=== PATIENT | male | born 1945 | race Caucasian/White ===

== ENCOUNTER 2025-03-08 09:15 | Outpatient (CLI) | payer MEDICARE, OTHER, SELFPAY ==
--- OUTSIDE RECORDS SUMMARY | 2025-03-08 10:02 | XMS_ITS | Patient Health Record ---
Author Organization [facility] Address [address] [place], [place] [address]RACHELLE SHEPPARD [place] [id number] Care Team Providers Care Client Relations Associate Name Role Phone Curtiss, Doctor Primary Care Provider [phone] Reason For Referral No Information Medications Medication SIG (Take, Route, Fr equency, Duration) Notes Start Date End Date Status Aspir-81 81 MG 1 tablet Orally Once a day Active metFORMIN HCl 500 MG 1 tablet with meals Orally Twice a day Active Lisinopril 40 MG 1 tablet Orally Once a day Active Simvastatin 20 MG 1 tablet in the even ing Orally Once a day Active Immunizations Vaccine Route Administration Date Status Comme nts INFLUENZA VACCINE Unknown 06/09/2009 Administered ([facility] [place]) Plan Of Treatment No Information Insurance Providers Payer Name Payer Address Payer Phone Subscriber Number Group Number Insured Name Patient Relationship to Insured Coverage Start Date Coverage End Date [employer] ([id number]) [address] [address] [place] [address] [phone] [id number] Andrew Hinds Self - patient is the insured [employer] ([id number]) Foley GBA ATTN J Medicare Part A [address] [place] [address] [id number] Andrew Hinds Self - patient is the insured
--- OUTSIDE RECORDS SUMMARY | 2025-03-08 10:02 | XMS_ITS | Clinical Summary ---
Author Organization [facility] Address [address] [place] [id number] Care Team Providers Care Catch Basin Cleaner Name Role Phone Kenan Garcia MD Primary Care Provider Allergies No known active allergies Medications omega-3 fatty acids-vitamin E (FISH OIL) 1,000 mg capIndications: for joints Take 1 capsule by mouth once daily. Indications: for joints 0 4 Active blood-glucose meter (BLOOD GLUCOSE MONITORING)Consuelo cations:Diabete s mellitus, type 2 (HC) Dispense meter, test strips, lancets covered by pt ins. 250.02 NIDDM type II, uncontrolled - Test 2 times/day. Reason: High A1C 1 Device 0 5 Active TRUETRACK TEST stripIndication s:Type 2 diabetes mellitus without complication, without long-term current use of insulin (HC) CHECK GLUCOSE TWICE A DAY 100 Each 2 7 Active aspirin (ECOTRIN) 81 mg enteric coated tablet Take 1 tablet by mouth once daily with a meal. 0 7 Active atorvastatin 40 mg tabletIndicatio ns:HTN (hypertension) Take 1 Tablet (40 mg) by mouth once daily. 90 Tablet 3 12/15/2024 3:36 PM CDT 4 Active finasteride 5 mg tabletIndicatio ns:BPH without urinary obstruction Take 1 Tablet (5 mg) by mouth once daily in the morning. 90 Tablet 3 02/09/2025 5:03 PM CDT 4 Active lisinopril-hydr ochlorothiazide (10-12.5 mg) tablet (PRINZIDE; ZESTORETIC)Consuelo cations:HTN (hypertension) Take 1 Tablet by mouth once daily. 90 Tablet 3 02/09/2025 5:03 PM CDT 4 Active metFORMIN 500 mg Extended-Releas e tabletIndicatio ns:Type 2 diabetes mellitus without complication, without long-term current use of insulin (HC) Take 1 Tablet (500 mg) by mouth once daily with evening meal. 90 Tablet 3 02/09/2025 5:03 PM CDT 4 Active propranolol ER 60 mg Cs24 Sustained-Relea se capsuleIndicati ons:HTN (hypertension) Take 1 Capsule (60 mg) by mouth once daily. 90 Capsule 3 02/09/2025 5:03 PM CDT 4 Active albuterol HFA (PRO-AIR; VENTOLIN; PROVENTIL) 90 mcg/actuation inhalerIndicati ons:Pneumonia of right lung due to infectious organism, unspecified part of lung,Wheezing Inhale 2 Puffs by mouth every 4 hours if needed for Shortness Of Breath. 8.5 g 10/29/2024 11:52 AM REHABILITATION ATTENDANT 5 Active codeine-guaiFEN esin 10-100 mg/5 mL liquidIndicatio ns:Pneumonia of right lung due to infectious organism, unspecified part of lung,Wheezing Take 10 mL by mouth every 6 hours if needed for Cough. 118 mL 10/29/2024 11:52 AM REHABILITATION ATTENDANT 5 Active Additional Information Patient not taking.Reported on 02/25/2025 traMADoL (ULTRAM) 50 mg tabletIndicatio ns:Internal derangement of left knee,Acute pain of left knee Take 1 Tablet (50 mg) by mouth every 6 hours if needed for Pain. 20 Tablet 11/25/2024 3:40 PM CDT 5 Active Additional Information Patient not taking.Reported on 02/25/2025 durable medical equipment (DME)Indication s:Internal derangement of left knee Reddie Brace, Small 1 Each 5 Active Active Problems Problem Noted Date Diagnosed Date Essential tremor 06/29/2020 CTS (carpal tunnel syndrome) 10/21/2013 Kidney stone 10/24/2011 Diabetes mellitus type II 06/21/2011 Arteriosclerotic heart disease (ASHD) 01/22/2010 Overview (01/22/2010): - 12/15/09 Cor angio: 90% mid LAD, otherwise mild CAD; s/p MADALYN x 1 Chest pain 01/22/2010 Family hx of prostate cancer 09/27/2009 Other and unspecified hyperlipidemia Overview (12/15/2009): -Untreated -Hx myalgias with Lipitor Depression HTN (hypertension) Resolved Problems Problem Noted Date Diagnosed Date Resolved Date Elevated blood sugar 12/12/2010 015 Atypical chest pain 10/30/19 15 Encounters Date Type Department Care Team Description 02/25/2025 9:10 AM CDT Office Visit [facility] [address] [place] [address] Vimal Kamara MD Pain (In right side and radiates front to the back/Pain started 3 weeks ago and is gradually getting worse/Went to the ER and kidney stones where ruled out) 02/25/2025 Travel 02/24/2025 Nurse Triage [facility] [address] [place] [address] Kenan Garcia MD Back Pain 02/16/2025 9:40 AM CDT Office Visit [facility] [address] [place] [address] Sacha Aguilar MD Musculoskeletal Problem (Follow up back pain last seen 03/08/24) 02/16/2025 Travel 02/13/2025 4:54 PM CDT - 02/13/2025 7:28 PM CDT Emergency [facility] [address] [place] [address] John Poe MD Flank pain (Primary Dx) Discharge Disposition: Home Self Care 02/13/2025 Travel 12/15/2024 9:49 AM CDT - 12/15/2024 11:59 PM CDT Hospital Encounter [facility] [address] [place] [address] Lars Briggs PA Kaufenberg, Rachel, PT Acute medial meniscus tear of left knee, initial encounter; Chondromalacia, left knee; Sprain of medial collateral ligament of left knee, initial encounter; Tendinitis of left quadriceps tendon; Popliteal cyst, left 12/15/2024 Travel 12/07/2024 1:00 PM CDT Office Visit [facility] [place] [address] [facility] [place] [address] Lars Briggs PA Knee Pain/problem (f/u left knee MRI) 12/07/2024 Travel from Last 3 Months Immunizations Immunization Administration Dates Next Due Amb Influenza, Inact (High-d ose) (Flu Clinic Only) 06/30/2014 COVID-19 VACCINE SPIKEVAX (M ODERNA 50MCG/0.5ML) 12YO+ PFS 06/08/2024 COVID-19 vaccine (Moderna 50 mcg/0.5mL) 12YO+ BIVALENT PF, MDV 06/07/2023 COVID-19 vaccine (EventCombo-Bio NTech 30mcg/0.3mL) 12YO+ BIVALENT PF, MDV 06/25/2022 COVID-19 vaccine (Pfizer-Bio NTech 30mcg/0.3mL) 12YO+ VIK-SUCROSE PF, MDV 03/27/2022 COVID-19 vaccine (Pfizer-Bio NTech 30mcg/0.3mL) PF, MDV 06/10/2021,12/07/2020,11/09/2020 Hepatitis A (Adult) 10/29/2012,11/06/2011 Influenza, High-dose Inactivated 024,06/22/2019,06/04/2018,06/24,06/24/2016,06/21/2015,06/30/2014 Influenza, High-dose Quadriv alent Inactivated 06/07/2023,06/25/2022,06/23/2020 Influenza, IIV3 (Age >=3 years) 06/03/20 12,08/02/2011,06/28/2010,06/09,06/24/2008,07/14/2006,08/13/2005 ,08/29/2004 Influenza, Inactivated AIIV4 (Age 65+ Years) Preserv Free 06/10/2021 Pneumococcal Poly,23-Valent (Pneumovax) 11/14/2021,12/16/2009 Pneumococcal conj 13-Valent (Prevnar 13) 08/04/2015 RSV, Bivalent Vaccine Recons tituted (Abrysvo 120MCG/0.5mL) 06/07/2023 Tdap 07/10/2021,11/06/2011 Typhoid (injectable) 11/06/2011 Zoster (Shingrix-RZV, recombinant) 06/08/2024, Zoster (Zostavax-ZVL, live) 06/24/2016 Family History Medical History Relation Name Comments Cancer-prostate Brother prostatectom y Diabetes Father Relation Name Status Comments Brother Father Social History Tobacco Use Types Packs/Day Years Used Date Smoking Tobacco: Never Passive Smoke Exposure: Past Smokeless Tobacco: Never Tobacco Cessation:Counseling Given: Yes Alcohol Use Standard Drinks/Week Comments Yes 0 (1 standard drink = 0.6 oz pur e alcohol) 2 daily PHQ-2 Answer Date Recorded PHQ-2 TOTAL SCORE 0 08/31/2024 Social Connections Answer Date Recorded Do you often feel lonely or isolated from those around you? 0 02/25/2025 Financial Resource Strain Answer Date R ecorded Difficulty of Paying Living Expenses 3 02/25/2025 Difficulty of Paying Living Expenses Not on file 02/25/2025 Food Insecurity Answer Date Recorded Do you worry your food will run out before you are able to buy more? 1 02/25/2025 Transportation Needs Answer Date Record ed Does lack of transportation keep you from medica l appointments? 1 02/25/2025 Does lack of transportation keep you from work, meetings or getting things that you need? 1 02/25/2025 Housing Stability Answer Date Recorded What is your housing situation today? 1 02/25/2025 Interpersonal Safety Answer Date Record ed Are you being hit, kicked, p ushed or yelled at (see row info)? No 02/13/2025 Interpersonal Safety Abuse 12 - 18 Not on file 02/13/2025 Interpersonal Safety Ambulatory Vulnerability No t on file 02/13/2025 Utilities Answer Date Recorded Do you have trouble paying f or utilities (for example, heat, electricity, water, phone)? 1 02/25/2025 Sex and Gender Information Value Date Recorded Sex Assigned at Not on file Legal Sex Male 6:03 AM REHABILITATION ATTENDANT Gender Identity Not on file Sexual Orientation Not on file Occupation Industry Job Start Date Job End Date retired Not on file Not on file Not on file Obstetrics History Last Filed Vital Signs Vital Sign Reading Time Taken Comments Blood Pressure 144/74 02/25/2025 9:11 AM CDT Pulse 62 02/25/2025 9:11 AM CDT Temperature 36.5 C (97.7 F) 02/16/2025 9:46 AM CDT Respiratory Rate 18 02/13/2025 5:00 PM CDT Oxygen Saturation 99% 02/25/2025 9:09 AM CDT Inhaled Oxygen Concentration - - Weight 92.6 kg (204 lb 1.6 oz) 02/25/2025 9:09 A M CDT Height 188 cm (6' 2) 02/13/2025 5:04 PM CDT Body Mass Index 26.2 02/13/2025 5:04 PM CDT Plan of Treatment Upcoming Encounters Date Type Department Care Team (Late st Contact Info) Description 04/21/2025 9:40 AM CDT Office Visit [facility] [address] [place] [address] Sacha Aguilar MD [address] [place] [address] Health Maintenance Due Date Last Done Comments COVID-19 vaccine series ( season) 2024 06/08/2024, 06/07/2023, 06/07/2023, Additional history exists Depression screening for age 12+ 08/31/2025 08/31/2024, 03/03/2024, 03/03/2024, Additional history exists Medicare Wellness for age 65+ 09/01/2025 08/31/2024, 12/02/2022, 11/27/2021, Additional history exists BMI (ht and wt on same day) for age 18+ 11/03/2025 11/03/2024, 08/31/2024, 03/03/2024, Additional history exists Tetanus booster 07/10/2031 07/10/2021, 11/06/2011 Tdap Completed 07/10/2021, 11/06/2011 Hepatitis C screening for age 18-79 Completed 07/11/2021 Pneumococcal series for age 50+ Completed 11/14/2021, 08/04/2015, 12/16/2009 RSV vaccine for adults or Completed 06/07/2023 Influenza Vaccine Completed 06/08/2024, , 06/22/2019, Additional history exists Zoster (shingles) series for age 50+ Completed 06/08/2024, 11/14/2021, 06/24/2016 Hepatitis B series for 19+ Aged Out N o longer eligible based on patient's age to complete this topic Medical Devices Implanted Type Area Artificial Fly Tier Device Identifier Shelf Expiration Date Model / Serial / Lot Arthro Speedbridge 4.75 Kit - [id number] Implanted:Qty: 1 on 08/21/2020 by Ambrocio Jensen MD at [facility] Left: Shoulder 04/14/2024 [id number] / / [id number] Procedures Procedure Name Priority Date/Time Associated Diagnosis Comments AMB EPIDURAL STEROID INJECTION Routine 03/08/2025 7:59 AM CDT Lumbar facet arthropathy Lumbar spondylosis Lumbar disc herniation Lumbar radiculopathy CT ABDOMEN PELVIS STONE PROTOCOL WO STAT 02/13/2025 5:24 PM CDT UA W/ SEDIMENT EXAM REFLEXED PER CRITERIA STAT 02/13/2025 5:09 PM CDT ANTI HCV Routine 07/11/2021 3:57 PM CDT Need for hepatitis C screening test from Last 3 Months or Most Recently Relevant to Health Maintenance Results * CT ABD/PELVIS STONE PROTOCOL WO CONT (02/13/2025 5:24 PM CDT) Anatomical Region Laterality Modality Abdomen, Pelvis, AORTA, LIVER, SPLEEN Computed Tomography 02/13/2025 7:20 PM CDT Impressions 02/13/2025 7:20 PM CDT 1. No acute abnormality to explain right flank pain. Negative for hydronephrosis or nephrolithiasis. 2. Colonic diverticulosis without evidence of acute diverticulitis. Please note that all CT scans at this facility use dose modulation, iterative reconstruction, and/or weight-based dosing when appropriate to reduce radiation dose to as low as reasonably achievable. Dictated by Elyssa Michel MD @ 02/13/2025 7:20:28 PM (Electronically Signed) Narrative 02/13/2025 7:20 PM CDT For Patients: As a result of the Cures Act, medical imaging exams and procedure reports are released immediately into your electronic medical record. You may view this report before your referring provider. If you have questions, please contact your health care provider. INDICATION: Right flank pain TECHNIQUE: CT abdomen and pelvis without contrast. COMPARISON: None. FINDINGS: The visualized portions of the lung bases are clear. Evaluation of the abdominal viscera is limited due to lack of IV contrast, however the liver, spleen, pancreas and adrenal glands are unremarkable. The gallbladder is surgically absent. The kidneys are negative for hydronephrosis or nephrolithiasis. The bladder is partially distended and unremarkable. There are no dilated loops of small bowel to suggest obstruction.The appendix is not visualized.Scattered colonic diverticula without adjacent inflammatory change. Negative for intraperitoneal free air or fluid. Small fat containing bilateral inguinal hernias. Moderate multilevel degenerative changes of the spine. Procedure Note Elyssa Michel MD - 02/13/2025 For Patients: As a result of the Cures Act, medical imagingexams and procedure reports are released immediately into your electronicmedical record. You may view this report before your referring provider.If you have questions, please contact your health care provider. INDICATION: Right flank pain TECHNIQUE: CT abdomen and pelvis without contrast. COMPARISON: None. FINDINGS: The visualized portions of the lung bases are clear. Evaluation of the abdominal viscera is limited due to lack of IV contrast,however the liver, spleen, pancreas and adrenal glands are unremarkable.The gallbladder is surgically absent. The kidneys are negative for hydronephrosis or nephrolithiasis. Thebladder is partially distended and unremarkable. There are no dilated loops of small bowel to suggest obstruction.Theappendix is not visualized.Scattered colonic diverticula without adjacentinflammatory change. Negative for intraperitoneal free air or fluid. Smallfat containing bilateral inguinal hernias. Moderate multilevel degenerative changes of the spine. IMPRESSION: 1. No acute abnormality to explain right flank pain. Negative forhydronephrosis or nephrolithiasis. 2. Colonic diverticulosis without evidence of acute diverticulitis. Please note that all CT scans at this facility use dose modulation,iterative reconstruction, and/or weight-based dosing when appropriate toreduce radiation dose to as low as reasonably achievable. Dictated by Elyssa Michel MD @ 02/13/2025 7:20:28 PM (Electronically Signed) us John Poe MD CT Fin al Result * UA W/ SEDIMENT EXAM REFLEXED PER CRITERIA (02/13/2025 5:09 PM CDT) COLOR Yellow Yellow Color 02/13/2025 5:20 PM [facility] CLARITY Clear Clear Clarity 02/13/2025 5:20 PM [facility] SPECIFIC GRAVITY,URINE 1.020 1.010, 1.015, 1.020, 1.025 02/13/2025 5:20 PM [facility] PH,URINE 5.5 6.0, 7.0, 8.0, 5.5, 6.5, 7.5, 8.5 02/13/2025 5:20 PM [facility] UROBILINOGEN, QUALITATIVE Normal Normal EU/dl 02/13/2025 5:20 PM [facility] PROTEIN, URINE Negative Negative mg/dL 02/13/2025 5:20 PM [facility] GLUCOSE, URINE Negative Negative mg/dL 02/13/2025 5:20 PM [facility] KETONES,URINE Negative Negative mg/dL 02/13/2025 5:20 PM [facility] BILIRUBIN,URI NE Negative Negative 02/13/2025 5:20 PM [facility] OCCULT BLOOD,URINE Negative Negative 02/13/2025 5:20 PM [facility] NITRITE Negative Negative 02/13/2025 5:20 PM [facility] LEUKOCYTE ESTERASE Negative Negative 02/13/2025 5:20 PM CDT [facility] Urine URINE SPECIMEN / Unknown Non-Blood / Unknown 02/13/2025 5:09 PM CDT 02/13/2025 5:12 PM CDT [facility] Ed Triage URINE Final Result [facility] [address] [facility] [place] [address] * ANTI HCV (07/11/2021 3:57 PM CDT) HEPATITIS C ANTIBODY Non-React rosa Non-React rosa 07/11/2021 9:42 PM CDT [facility] Comment:Antibodies to HCV no t detected; does not exclude the possibility of exposure to HCV. Blood BLOOD SPECIMEN / Unknown Venipuncture / Unknown 07/11/2021 3:57 PM CDT 07/11/2021 2:00 PM CDT Kenan Garcia MD SEND OUTS Final R esult [facility] [address] [place] [address], from Last 3 Months or Most Recently Relevant to Health Maintenance Insurance MEDICARE [place] [address] [place] [address] MEDICARE PART B HB ONLY MEDICA [employer] [place] ONLY MEDICA PRIME SOLUTION HB MEDICARE PART A HB ONLY Advance Directives * Full Code (Latest Code Status on File) Date Activated Date Inactivated Comments 08/21/2020 9:25 AM 08/21/2020 4:14 PM Question Answer Comments Code Status Discussion: Not Discussed * Full Code Date Activated Date Inactivated Comments 10/30/2017 8:44 AM 10/30/2017 12:08 PM Question Answer Comments Code Status Discussion: Discussed * Full Code Date Activated Date Inactivated Comments 10/30/2017 7:16 AM 10/30/2017 8:44 AM * Full Code Date Activated Date Inactivated Comments 10/07/2017 8:40 AM 10/08/2017 2:35 AM * Full Code Date Activated Date Inactivated Comments 10/21/2013 2:20 PM 10/21/2013 5:24 PM Care Teams Catch Basin Cleaner Relationship Specialty Start Date End Date Kenan Garcia MD [address] [place] [address] PCP - General Family Practice 05/01/21
--- OUTSIDE RECORDS SUMMARY | 2025-03-09 00:45 | XMS_ITS | Clinical Summary ---
Author Organization [facility] Address [address] [place] [id number] Care Team Providers Care Field Consultant Name Role Phone Kenan Garcia MD Primary [...] Of Breath. 8.5 g 10/29/2024 11:52 AM ACCOUNT FINANCIAL MANAGER 5 Active codeine-guaiFEN esin 10-100 mg/5 mL liquidIndicatio ns:Pneumonia of right lung due to infectious organism, unspecified part of lung,Wheezing Take 10 mL by mouth every 6 hours if needed for Cough. 118 mL 10/29/2024 11:52 AM ACCOUNT FINANCIAL MANAGER 5 Active Additional Information Patient not taking.Reported [...] Encounters Date Type Department Care Team Description 03/08/2025 10:00 AM CDT Office Visit [facility] [address] [place] [address] Sacha Aguilar MD Procedure (L3-4 ILESI) 02/25/2025 9:10 AM CDT Office Visit [facility] [address] [place] [address] Vimal Kamara MD Pain (In right side and radiates front to the back/Pain started 3 weeks ago and is gradually getting worse/Went to the ER and kidney stones where ruled out) 02/25/2025 Travel 02/24/2025 Nurse Triage [facility] [address] [place] [address] Kenan Garcia MD Back Pain 02/16/2025 9:40 AM CDT Office Visit [facility] [address] [place] [address] Sacha Aguilar MD Musculoskeletal Problem (Follow up back pain last seen 03/08/24) 02/16/2025 Travel 02/13/2025 4:54 PM CDT - 02/13/2025 7:28 PM CDT Emergency [facility] [address] [place] [address] John Poe MD Flank pain (Primary Dx) Discharge Disposition: Home Self Care 02/13/2025 Travel 12/15/2024 9:49 AM CDT - 12/15/2024 11:59 PM CDT Hospital Encounter [facility] - [address] [place] [address] Lars Briggs PA Kaufenberg, Rachel, PT Acute medial meniscus tear of left knee, initial encounter; Chondromalacia, left knee; Sprain of medial collateral ligament of left knee, initial encounter; Tendinitis of left quadriceps tendon; Popliteal cyst, left 12/15/2024 Travel 12/07/2024 1:00 PM CDT Office Visit [facility] [address] [place] [address] Lars Briggs PA Knee Pain/problem (f/u left knee MRI) 12/07/2024 Travel from Last 3 Months Immunizations Immunization Administration Dates Next Due Amb Influenza, Inact (High-d ose) (Flu Clinic Only) 06/30/2014 COVID-19 VACCINE SPIKEVAX (M ODERNA 50MCG/0.5ML) 12YO+ PFS 06/08/2024 COVID-19 vaccine (Moderna 50 mcg/0.5mL) 12YO+ BIVALENT PF, MDV 06/07/2023 COVID-19 vaccine ([employer] NT[employer] 30mcg/0.3mL) 12YO+ BIVALENT PF, MDV 06/25/2022 COVID-19 vaccine ([employer] 30mcg/0.3mL) 12YO+ VIK-SUCROSE PF, MDV 03/27/2022 COVID-19 vaccine ([employer] 30mcg/0.3mL) PF, MDV 06/10/2021,12/07/2020,11/09/2020 Hepatitis A [...] on file Legal Sex Male 6:03 AM ACCOUNT FINANCIAL MANAGER Gender Identity Not on file Sexual Orientation [...] Description 04/21/2025 9:40 AM CDT Office Visit [facility] [address] [place] [address] Sacha Aguilar MD [address] [place] [address] Health Maintenance Due Date Last Done Comments [...] this topic Medical Devices Implanted Type Area Paper Coater Device Identifier Shelf Expiration Date Model / Serial / Lot [employer] Speedbridge 4.75 Kit - [id number] Implanted:Qty: 1 on 08/21/2020 by Ambrocio Jensen MD at [facility] Left: Shoulder 04/14/2024 [id number] / / [id number] Procedures Procedure Name Priority Date/Time Associated Diagnosis [...] COLOR Yellow Yellow Color 02/13/2025 5:20 PM [facility] CLARITY Clear Clear Clarity 02/13/2025 5:20 PM [facility] SPECIFIC GRAVITY,URINE 1.020 1.010, 1.015, 1.020, 1.025 02/13/2025 5:20 PM [facility] PH,URINE 5.5 6.0, 7.0, 8.0, 5.5, 6.5, 7.5, 8.5 02/13/2025 5:20 PM [facility] UROBILINOGEN, QUALITATIVE Normal Normal EU/dl 02/13/2025 5:20 PM [facility] PROTEIN, URINE Negative Negative mg/dL 02/13/2025 5:20 PM [facility] GLUCOSE, URINE Negative Negative mg/dL 02/13/2025 5:20 PM [facility] KETONES,URINE Negative Negative mg/dL 02/13/2025 5:20 PM [facility] BILIRUBIN,URI NE Negative Negative 02/13/2025 5:20 PM [facility] OCCULT BLOOD,URINE Negative Negative 02/13/2025 5:[address] [facility] NITRITE Negative Negative 02/13/2025 5:[address] [facility] LEUKOCYTE ESTERASE Negative Negative 02/13/2025 5:[address] [facility] Urine URINE SPECIMEN / Unknown Non-Blood / Unknown 02/13/2025 5:09 PM CDT 02/13/2025 5:12 PM CDT [facility] [place] Final Result [facility] [address] [place] [address] * ANTI HCV (07/11/2021 3:57 PM CDT) HEPATITIS C ANTIBODY Non-React rosa Non-React rosa 07/11/2021 9:42 PM CDT [facility] Comment:Antibodies to HCV no t detected; does not exclude the possibility of exposure to HCV. Blood BLOOD SPECIMEN / Unknown Venipuncture / Unknown 07/11/2021 3:57 PM CDT 07/11/2021 2:00 PM CDT Kenan Garcia MD SEND OUTS Final R esult [facility] [address] [place] [address], from Last 3 Months or Most Recently Relevant to Health Maintenance Insurance MEDICARE PROVIDER BASED [place] [address] MEDICARE PART B HB ONLY [employer] Breaker MR PB ONLY [employer] PRIME SOLUTION HB MEDICARE [...] 2:20 PM 10/21/2013 5:24 PM Care Teams Field Consultant Relationship Specialty Start Date End Date Kenan Garcia MD [address] [place] [address] PCP - General Family Practice 05/01/21
== END 2025-03-08 09:16 | disposition home or self-care (01) ==
PROVIDERS: PCP Family Medicine; Visit Provider Family Medicine
DX: M54.16 Radiculopathy, lumbar region (principal); M51.369 Other intervertebral disc degeneration, lumbar region without mention of lumbar back pain or lower extremity pain
CPT/HCPCS: 62323; J0702; Q9966